=== PATIENT | male | born 2000 | race Caucasian/White ===

== ENCOUNTER 2019-02-07 16:23 | Emergency (ER) | payer OTHER ==
--- NOTE | 2019-02-07 16:42 | EDM.PDOC ---
<Smita Alcala - Last Filed: 02/07/19 17:56> ED HPI GENERAL MEDICAL PROBLEM - General Chief Complaint: General Stated Complaint: YELLOW EYES Time Seen by Provider: 02/07/19 16:41 Source of Information: Reports: Patient, Family History Limitations: Reports: No Limitations - History of Present Illness INITIAL COMMENTS - FREE TEXT/NARRATIVE: HISTORY AND PHYSICAL: History of present illness: Patient is a 18-year-old male presents to the ED with complaint of diarrhea x 3 weeks and yellow eyes. He states he has had loose, watery stools x 3 weeks. He states today he noticed that his eyes are yellow which concerned him and his mom and prompted him to come to ED. He states he did have itchy skin for a while but this has since resolved. Denies bloody, black, or bryan colored stools. Denies fevers, chills, nausea, vomiting, abdominal pain, urinary symptoms. Denies past medical or surgical history. Review of systems: As per history of present illness and below otherwise all systems reviewed and negative. Past medical history: As per history of present illness and as reviewed below otherwise noncontributory. Surgical history: As per history of present illness and as reviewed below otherwise noncontributory. Social history: No reported history of drug or alcohol abuse. Family history: As per history of present illness and as reviewed below otherwise noncontributory. Physical exam: General: Patient sitting comfortably in no acute distress and nontoxic appearing HEENT: Mild conjunctival yellowing. Atraumatic, normocephalic, pupils reactive, negative for conjunctival pallor, mucous membranes moist, throat clear, neck supple, nontender, trachea midline. No meningeal signs. Lungs: Clear to auscultation, breath sounds equal bilaterally, chest nontender. Heart: S1S2, regular, negative for clicks, rubs, or overt murmur. Abdomen: Soft, nondistended, nontender. Negative for masses or hepatosplenomegaly. Negative for costovertebral tenderness. No rigidity, rebound , guarding. Pelvis: Stable nontender. Genitourinary: Deferred. Rectal: Deferred. Extremities: Atraumatic, negative for cords or calf pain. Neurovascular unremarkable. Neuro: Awake, alert, oriented. Cranial nerves II through XII unremarkable. Cerebellum unremarkable. Motor and sensory unremarkable throughout. Exam nonfocal. Notes: Diagnostics: CBC, CMP, PT/INR, acute hepatitis panel, RUQ US Therapeutics: Prescriptions: Impression: Elevated LFTs, diarrhea Plan: Signed out to Lisa Regalado at 1800 Definitive disposition and diagnosis as appropriate pending reevaluation and review of above. - Related Data Allergies Allergy/AdvReac Type Severity Reaction Status Date / Time amoxicillin Allergy Rash Verified 02/07/19 16:33 Penicillins Allergy Rash Verified 02/07/19 16:33 Home Meds: Home Meds . [No Known Home Meds] 08/31/15 [History] Past Medical History - Past Surgical History HEENT Surgical History: Reports: Adenoidectomy Social & Family History - Family History Family Medical History: Noncontributory - Tobacco Use Smoking Status *Q: Never Smoker Second Hand Smoke Exposure: No - Caffeine Use Caffeine Use: Reports: Coffee - Recreational Drug Use Recreational Drug Use: No ED ROS GENERAL - Review of Systems Review Of Systems: ROS reveals no pertinent complaints other than HPI. ED EXAM, GENERAL - Physical Exam Exam: See Below (see dictation) Course - Vital Signs Last Recorded V/S: Last Vital Signs Temp 98 F 02/07/19 16:33 Pulse 70 02/07/19 21:01 Resp 18 02/07/19 21:01 BP 124/75 02/07/19 21:01 Pulse Ox 100 02/07/19 21:01 - Orders/Labs/Meds Orders: Active Orders 24 hr Category Date Time Status CDIFF TOX A+B [OP] Stat Lab 02/07/19 16:41 Ordered CULTURE STOOL + CAMPY+SHIGATOX [RM] Stat Lab 02/07/19 16:41 Ordered HEPATITIS PANEL (4) [REF] Stat Lab 02/07/19 18:14 Received OVA & PARASITES BY IMMUNOASSAY [MREF] Stat Lab 02/07/19 16:41 Ordered Isolation [COMM] Stat Oth 02/07/19 16:41 Ordered Labs: Laboratory Tests 02/07/19 02/07/19 02/07/19 Range/Units 17:10 17:10 17:11 WBC 4.69 (4.0-11.0) K/uL RBC 4.90 (4.50-5.90) M/uL Hgb 15.4 (13.0-17.0) g/dL Hct 45.0 (38.0-50.0) % MCV 91.8 (80.0-98.0) fL MCH 31.4 (27.0-32.0) pg MCHC 34.2 (31.0-37.0) g/dL RDW Std Deviation 43.3 (28.0-62.0) fl RDW Coeff of Darlyn 13 (11.0-15.0) % Plt Count 142 L (150-400) K/uL MPV 12.00 (7.40-12.00) fL Neut % (Auto) 56.4 (48.0-80.0) % Lymph % (Auto) 28.1 (16.0-40.0) % [place] % (Auto) 13.2 (0.0-15.0) % Eos % (Auto) 1.9 (0.0-7.0) % Baso % (Auto) 0.4 (0.0-1.5) % Neut # (Auto) 2.6 (1.4-5.7) K/uL Lymph # (Auto) 1.3 (0.6-2.4) K/uL [place] # (Auto) 0.6 (0.0-0.8) K/uL Eos # (Auto) 0.1 (0.0-0.7) K/uL Baso # (Auto) 0.0 (0.0-0.1) K/uL Nucleated RBC % 0.0 /100WBC Nucleated RBCs # 0 K/uL INR 1.02 Sodium 141 (136-148) mmol/L Potassium 4.6 (3.5-5.1) mmol/L Chloride 106 (98-107) mmol/L Carbon Dioxide 25.7 (21.0-32.0) mmol/L BUN 13 (7.0-18.0) mg/dL Creatinine 1.0 (0.8-1.3) mg/dL Est Cr Clr Drug Dosing 149.74 mL/min Estimated GFR (MDRD) > 60.0 ml/min Glucose 95 (74-106) mg/dL Calcium 9.4 (8.5-10.1) mg/dL Total Bilirubin 4.5 H (0.2-1.0) mg/dL AST 180 H (15-37) IU/L ALT 482 H (14-63) IU/L Alkaline Phosphatase 627 H (46-116) U/L Total Protein 7.9 (6.4-8.2) g/dL Albumin 3.5 (3.4-5.0) g/dL Globulin 4.4 H (2.6-4.0) g/dL Albumin/Globulin Ratio 0.8 L (0.9-1.6) Meds: Medications Discontinued Medications Generic Name Dose Route Start Last Admin Trade Name Freq PRN Reason Stop Dose Admin Sodium Chloride 1,000 mls @ 999 mls/hr 02/07/19 18:53 02/07/19 19:08 Normal Saline IV 02/07/19 19:53 999 mls/hr STAT ONE Administration Iopamidol 100 ml 02/07/19 19:36 02/07/19 19:36 Isovue Multipack-370 (76%) IVPUSH 02/07/19 19:37 100 ml ONETIME ONE Administration Departure - Departure Disposition: Home, Self-Care 01 Condition: Good Clinical Impression: Elevated LFTs, Elevated bilirubin Diarrhea Qualifiers: Diarrhea type: unspecified type Qualified Code(s): R19.7 - Diarrhea, unspecified - Discharge Information Instructions: Jaundice, Adult, [id number], Diarrhea, Adult, [id number] Referrals: PCP,Unknown [Primary Care Provider] - Forms: ED Department Discharge Additional Instructions: The following information is given to patients seen in the emergency department who are being discharged to home. This information is to outline your options for follow-up care. We provide all patients seen in our emergency department with a follow-up referral. The need for follow-up, as well as the timing and circumstances, are variable depending upon the specifics of your emergency department visit. If you don't have a primary care physician on staff, we will provide you with a referral. We always advise you to contact your personal physician following an emergency department visit to inform them of the circumstance of the visit and for follow-up with them and/or the need for any referrals to a consulting specialist. The emergency department will also refer you to a specialist when appropriate. This referral assures that you have the opportunity for follow-up care with a specialist. All of these measure are taken in an effort to provide you with optimal care, which includes your follow-up. Under all circumstances we always encourage you to contact your private physician who remains a resource for coordinating your care. When calling for follow-up care, please make the office aware that this follow-up is from your recent emergency room visit. If for any reason you are refused follow-up, please contact the [facility] Emergency Department at and asked to speak to the emergency department charge nurse. [facility] Specialty Care - General Surgery Professional Building [address] [place] [address], [address] [place] [address] 1. Please keep your appointment with Dr Hunter tomorrow. We will call you with an appointment time. 2. Outpatient stool study should be completed. Nursing staff will review how to obtain a sample to have this reviewed. There are some studies that were done that will not be back until later this week/possibly next week (Hepatitis Panel) . 3. Call Dr Sena's office to set up a follow up appointment tomorrow at 0830. You should be seen 1-2 days after your MRCP. 4. Do not consume any fatty or greasy foods as we discussed. 5. At any time you develop abdominal pain please return to the emergency room. <Lisa Regalado E - Last Filed: 02/07/19 21:33> ED HPI GENERAL MEDICAL PROBLEM - History of Present Illness INITIAL COMMENTS - FREE TEXT/NARRATIVE: Assumed care of this patient at 1800: Waiting on ultrasound report. 0: Ultrasound shows: Mild intrahepatic biliary ductal dilatation. Normal diameter of the common bile duct. Recommend CT with IV contrast to exclude obstruction at the level of the proximal common bile duct. We'll order a CT of the abdomen and pelvis for further findings. 2049:CT of abd/pelvis shows intrahepatic biliary dilatation and also dilatation of the gallbladder are present. This is a significant finding without a clear etiology. GI consultation is indicated for management of this finding. MRCP may be helpful to further evaluate for inflammation, mass, or other abnormality to explain this finding. Remainder of the exam is unremarkable.Dr Sena, general surgeon manager of organizational development, was consult did on this patient. Dr Sena was informed of this patient and wait reviewed labs and imaging results. With the patient not having any sort of abdominal pain. And vital signs are stable. This patient can follow up and do an MRCP as outpatient and see Dr. Sena in office one to 2 days post imaging. Encouraged the patient to not have any fatty foods until seen by him. All of this information was shared with the patient and mother at bedside they voice understanding. He continues to be pain- free. Vital signs remain stable. Plan: 1. Please keep your appointment with Dr Hunter tomorrow. 2. Outpatient stool study should be completed. Nursing staff will review how to obtain a sample to have this reviewed. There are some studies that were done that will not be back until later this week/possibly next week (Hepatitis Panel) . 3. Call Dr Sena's office to set up a follow up appointment tomorrow at 0830. You should be seen 1-2 days after your MRCP. 4. Do not consume any fatty or greasy foods as we discussed. 5. At any time you develop abdominal pain please return to the emergency room. Departure - Departure Time of Disposition: 21:31
[2019-02-07 17:36] LABS: BLOOD UREA NITROGEN,BUN 13 mg/dL (7.0-18.0); CARBON DIOXIDE,CO2 25.7 mmol/L (21.0-32.0); CHLORIDE,CL 106 mmol/L (98-107); GLUCOSE RANDOM 95 mg/dL (74-106); POTASSIUM,K 4.6 mmol/L (3.5-5.1); SODIUM,NA 141 mmol/L (136-148)
--- NOTE | 2019-02-07 18:51 | US ---
INDICATION: Elevated liver enzymes TECHNIQUE: Ultrasound abdomen limited. Sonographic images of the right upper quadrant were obtained using beaver-scale and color Doppler images. COMPARISON: None FINDINGS: Liver: Normal in size and echotexture. No masses. Mild intrahepatic biliary dilatation. Gallbladder: No stones or sludge. Normal wall thickness. No pericholecystic fluid. Sonographic Asencio`s sign is negative. Common bile duct: 5.5 mm. Note that the distal common bile duct was poorly seen due to overlying bowel gas. Pancreas: Normal. Right kidney: 12.4 cm. Normal echotexture and cortex. No masses, stones, or hydronephrosis. Vasculature: Proximal abdominal aorta and IVC are normal. IMPRESSION: Mild intrahepatic biliary ductal dilatation. Normal diameter of the common bile duct. Recommend CT with IV contrast to exclude obstruction at the level of the proximal common bile duct. Dictated by Gilma Clarke MD @ Feb 07 2019 6:46PM Signed by Dr. Gilma Clarke @ Feb 07 2019 6:49PM
[2019-02-07] MEDS ORDERED: Sodium Chloride 0.9% 1,000 ML IV ONE (18:53)
[2019-02-07] MEDS ORDERED: Iopamidol 755 MG/ML 500 ML Multipack Bottle IVPUSH ONE (19:36)
--- NOTE | 2019-02-07 20:50 | CT ---
INDICATION: Elevated bilirubin. Abnormal ultrasound. TECHNIQUE: CT abdomen and pelvis acquired with 100 cc Isovue 370 IV contrast. COMPARISON: Ultrasound abdomen February 07, 2019. FINDINGS: Lower chest: Unremarkable. Liver: Intrahepatic biliary dilatation is present. Liver is otherwise normal in caliber and density. No focal lesions. Gallbladder and bile ducts: Gallbladder is moderately dilated. No stones or inflammation evident. Extrahepatic bile ducts are normal in caliber. Pancreas: Unremarkable. No mass or inflammation. Spleen: Unremarkable. Normal in size. No masses. Adrenal glands: Unremarkable. No nodules. Kidneys: Unremarkable. No masses, stones, or hydronephrosis. GI tract: Unremarkable. Normal in caliber. No sign of mass or inflammation. Normal appendix. Vasculature: Unremarkable. Mesenteric arteries are patent. Lymph nodes: No lymphadenopathy. Omentum/Peritoneum/Abdominal Wall: Unremarkable. No sign of mass or infiltration. No free air or significant free fluid. Pelvis: Unremarkable. Bones: Unremarkable for age. IMPRESSION: Intrahepatic biliary dilatation and also dilatation of the gallbladder are present. This is a significant finding without a clear etiology. GI consultation is indicated for management of this finding. MRCP may be helpful to further evaluate for inflammation, mass, or other abnormality to explain this finding. Remainder of the exam is unremarkable. Please note that all CT scans at this facility use dose modulation, iterative reconstruction, and/or weight-based dosing when appropriate to reduce radiation dose to as low as reasonably achievable. Dictated by Yossi Mckeon MD @ Feb 07 2019 8:38PM Signed by Dr. Yossi Mckeon @ Feb 07 2019 8:49PM
[2019-02-07 22:02] VITALS: BP 128/73; PULSE 68
== END 2019-02-07 22:03 | disposition home or self-care (01) ==
LOC: MW.ED 16:23
DX: R17 Unspecified jaundice (principal); R19.7 Diarrhea, unspecified; Z88.1 Allergy status to other antibiotic agents; Z88.0 Allergy status to penicillin
CPT/HCPCS: 36415; 74177; 76705; 80053; 80074; 85025; 85610; 96360; 99284; J7040; Q9967; 99283

== ENCOUNTER 2019-03-04 17:05 | Emergency (ER) | payer OTHER ==
[2019-03-04] MEDS ORDERED: Sodium Chloride 0.9% 1,000 ML IV ONE (17:24)
[2019-03-04] MEDS ORDERED: Sodium Chloride 0.9% 10 ML Syringe FLUSH PRN (17:24)
[2019-03-04] MEDS ORDERED: Sodium Chloride 0.9% 2.5 ML Syringe FLUSH PRN (17:24)
--- NOTE | 2019-03-04 17:31 | EDM.PDOC ---
ED HPI GENERAL MEDICAL PROBLEM - General Chief Complaint: General Stated Complaint: BLOOD IN STOOL Time Seen by Provider: 03/04/19 17:13 Source of Information: Reports: Patient History Limitations: Reports: No Limitations - History of Present Illness INITIAL COMMENTS - FREE TEXT/NARRATIVE: History of present illness: []Patient was diagnosed with Campylobacter a month ago and is being worked up for sclerosing cholangitis. He has an appointment one week from today at [facility] for an ERCP. Patient has continued to have diarrhea after he eats anything and mild abdominal pain with bowel movements. Today patient had a bowel movement with blood on it. Patient has not had any fevers chills vomiting or diarrhea. Mom wants to know if she should drive him to [place] now. Review of systems: As per history of present illness and below otherwise all systems reviewed and negative. Past medical history: As per history of present illness and as reviewed below otherwise noncontributory. Surgical history: As per history of present illness and as reviewed below otherwise noncontributory. Social history: No reported history of drug or alcohol abuse. Family history: As per history of present illness and as reviewed below otherwise noncontributory. Physical exam: General: Well developed, well nourished in NAD HEENT: Atraumatic, normocephalic, pupils reactive, positive for scleral icterus , mucous membranes moist, lips are dry throat clear, neck supple, nontender, trachea midline. Lungs: Clear to auscultation, breath sounds equal bilaterally, chest nontender. Heart: S1S2, regular, negative for clicks, rubs, or JVD. Abdomen: NABS, Soft, nondistended, nontender. Negative for masses or hepatosplenomegaly. Negative for costovertebral tenderness. Pelvis: Stable nontender. Genitourinary: Deferred. Rectal: Deferred. Extremities: Atraumatic, negative for cords or calf pain. Neurovascular unremarkable. Neuro: Awake, alert, oriented. Cranial nerves II through XII unremarkable. Cerebellum unremarkable. Motor and sensory unremarkable throughout. Exam nonfocal. Skin: Jaundiced, warm and dry Diagnostics: CBC, chemistry-LFTs are abnormal but stable Therapeutics: IV hydration ED Course: Stable Impression: Elevated LFTs, chronic diarrhea, blood on stool Prescriptions: None Plan: Take meds as directed, follow up with your primary care physician, return to ER if symptoms worsen or change. Definitive disposition and diagnosis as appropriate pending reevaluation and review of above. - Related Data Allergies Allergy/AdvReac Type Severity Reaction Status Date / Time amoxicillin Allergy Rash Verified 03/04/19 17:21 Penicillins Allergy Rash Verified 03/04/19 17:21 Home Meds: Home Meds . [No Known Home Meds] 08/31/15 [History] Past Medical History - Past Surgical History HEENT Surgical History: Reports: Adenoidectomy Social & Family History - Family History Family Medical History: Noncontributory - Tobacco Use Smoking Status *Q: Never Smoker Second Hand Smoke Exposure: No - Caffeine Use Caffeine Use: Reports: Energy Drinks - Recreational Drug Use Recreational Drug Use: No ED ROS GENERAL - Review of Systems Review Of Systems: See Below ED EXAM, GENERAL - Physical Exam Exam: See Below Course - Vital Signs Last Recorded V/S: Last Vital Signs Temp 97.6 F 03/04/19 17:22 Pulse 71 03/04/19 17:22 Resp 18 03/04/19 17:22 BP 135/81 03/04/19 17:22 Pulse Ox 99 03/04/19 17:22 - Orders/Labs/Meds Orders: Active Orders 24 hr Category Date Time Status CULTURE STOOL + CAMPY+SHIGATOX [RM] Stat Lab 03/04/19 17:24 Ordered TYPE AND SCREEN [BBK] Stat Lab 03/04/19 18:34 Received Sodium Chloride 0.9% [Saline Flush] Med 03/04/19 17:24 Active 10 ml FLUSH ASDIRECTED PRN Sodium Chloride 0.9% [Saline Flush] Med 03/04/19 17:24 Active 2.5 ml FLUSH ASDIRECTED PRN Saline Lock Insert [OM.PC] Stat Oth 03/04/19 17:23 Ordered Medication Orders Sodium Chloride (Saline Flush) 10 ml FLUSH ASDIRECTED PRN PRN Reason: Keep Vein Open Last Admin: 03/04/19 17:57 Dose: 10 ml Sodium Chloride (Saline Flush) 2.5 ml FLUSH ASDIRECTED PRN PRN Reason: Keep Vein Open Last Admin: 03/04/19 17:57 Dose: 2.5 ml Labs: Laboratory Tests 03/04/19 03/04/19 Range/Units 17:44 17:44 WBC 4.12 (4.0-11.0) K/uL RBC 4.47 L (4.50-5.90) M/uL Hgb 14.0 (13.0-17.0) g/dL Hct 41.5 (38.0-50.0) % MCV 92.8 (80.0-98.0) fL MCH 31.3 (27.0-32.0) pg MCHC 33.7 (31.0-37.0) g/dL RDW Std Deviation 46.3 (28.0-62.0) fl RDW Coeff of Darlyn 14 (11.0-15.0) % Plt Count 150 (150-400) K/uL MPV 13.70 H (7.40-12.00) fL Neut % (Auto) 60.0 (48.0-80.0) % Lymph % (Auto) 27.9 (16.0-40.0) % [place] % (Auto) 8.5 (0.0-15.0) % Eos % (Auto) 3.4 (0.0-7.0) % Baso % (Auto) 0.2 (0.0-1.5) % Neut # (Auto) 2.5 (1.4-5.7) K/uL Lymph # (Auto) 1.2 (0.6-2.4) K/uL [place] # (Auto) 0.4 (0.0-0.8) K/uL Eos # (Auto) 0.1 (0.0-0.7) K/uL Baso # (Auto) 0.0 (0.0-0.1) K/uL Nucleated RBC % 0.0 /100WBC Nucleated RBCs # 0 K/uL Sodium 140 (136-148) mmol/L Potassium 4.3 (3.5-5.1) mmol/L Chloride 106 (98-107) mmol/L Carbon Dioxide 24.9 (21.0-32.0) mmol/L BUN 12 (7.0-18.0) mg/dL Creatinine 1.0 (0.8-1.3) mg/dL Est Cr Clr Drug Dosing 122.68 mL/min Estimated GFR (MDRD) > 60.0 ml/min Glucose 109 H (74-106) mg/dL Calcium 9.0 (8.5-10.1) mg/dL Total Bilirubin 7.4 H (0.2-1.0) mg/dL AST 215 H (15-37) IU/L ALT 510 H (14-63) IU/L Alkaline Phosphatase 840 H (46-116) U/L Total Protein 7.8 (6.4-8.2) g/dL Albumin 3.2 L (3.4-5.0) g/dL Globulin 4.6 H (2.6-4.0) g/dL Albumin/Globulin Ratio 0.7 L (0.9-1.6) Lipase 52 L (73-393) U/L Meds: Medications Generic Name Dose Route Start Last Admin Trade Name Freq PRN Reason Stop Dose Admin Sodium Chloride 10 ml 03/04/19 17:24 03/04/19 17:57 Saline Flush FLUSH 10 ml ASDIRECTED PRN Administration Keep Vein Open Sodium Chloride 2.5 ml 03/04/19 17:24 03/04/19 17:57 Saline Flush FLUSH 2.5 ml ASDIRECTED PRN Administration Keep Vein Open Discontinued Medications Generic Name Dose Route Start Last Admin Trade Name Freq PRN Reason Stop Dose Admin Sodium Chloride 1,000 mls @ 999 mls/hr 03/04/19 17:24 03/04/19 17:55 Normal Saline IV 03/04/19 18:24 999 mls/hr .Bolus ONE Administration Departure - Departure Time of Disposition: 18:47 Disposition: Home, Self-Care 01 Condition: Good Clinical Impression: Chronic diarrhea, Elevated LFTs - Discharge Information *PRESCRIPTION DRUG MONITORING PROGRAM REVIEWED*: No *COPY OF PRESCRIPTION DRUG MONITORING REPORT IN PATIENT RAJIV: No Referrals: PCP,Unknown [Primary Care Provider] - Forms: ED Department Discharge Additional Instructions: The following information is given to patients seen in the emergency department who are being discharged to home. This information is to outline your options for follow-up care. We provide all patients seen in our emergency department with a follow-up referral. The need for follow-up, as well as the timing and circumstances, are variable depending upon the specifics of your emergency department visit. If you don't have a primary care physician on staff, we will provide you with a referral. We always advise you to contact your personal physician following an emergency department visit to inform them of the circumstance of the visit and for follow-up with them and/or the need for any referrals to a consulting specialist. The emergency department will also refer you to a specialist when appropriate. This referral assures that you have the opportunity for follow-up care with a specialist. All of these measure are taken in an effort to provide you with optimal care, which includes your follow-up. Under all circumstances we always encourage you to contact your private physician who remains a resource for coordinating your care. When calling for follow-up care, please make the office aware that this follow-up is from your recent emergency room visit. If for any reason you are refused follow-up, please contact the [facility] Emergency Department at and asked to speak to the emergency department charge nurse. follow up with your primary care physician, return to ER if symptoms worsen or change. [facility] [address] [place] [id number] - My Orders Last 24 Hours: My Active Orders 03/04/19 17:23 Saline Lock Insert [OM.PC] Stat 03/04/19 17:24 CULTURE STOOL + CAMPY+SHIGATOX [RM] Stat Sodium Chloride 0.9% [Saline Flush] 10 ml FLUSH ASDIRECTED PRN Sodium Chloride 0.9% [Saline Flush] 2.5 ml FLUSH ASDIRECTED PRN 03/04/19 18:34 TYPE AND SCREEN [BBK] Stat - Assessment/Plan Last 24 Hours: My Active Orders 03/04/19 17:23 Saline Lock Insert [OM.PC] Stat 03/04/19 17:24 CULTURE STOOL + CAMPY+SHIGATOX [RM] Stat Sodium Chloride 0.9% [Saline Flush] 10 ml FLUSH ASDIRECTED PRN Sodium Chloride 0.9% [Saline Flush] 2.5 ml FLUSH ASDIRECTED PRN 03/04/19 18:34 TYPE AND SCREEN [BBK] Stat
[2019-03-04 18:29] LABS: BLOOD UREA NITROGEN,BUN 12 mg/dL (7.0-18.0); CARBON DIOXIDE,CO2 24.9 mmol/L (21.0-32.0); CHLORIDE,CL 106 mmol/L (98-107); GLUCOSE RANDOM 109 mg/dL (74-106); LIPASE 52 U/L (73-393); POTASSIUM,K 4.3 mmol/L (3.5-5.1); SODIUM,NA 140 mmol/L (136-148)
[2019-03-04 19:05] VITALS: BP 125/72; PULSE 65
== END 2019-03-04 19:06 | disposition home or self-care (01) ==
LOC: MW.ED 17:05
DX: K52.9 Noninfective gastroenteritis and colitis, unspecified (principal); K92.1 Melena; R94.5 Abnormal results of liver function studies; Z88.0 Allergy status to penicillin
CPT/HCPCS: 36415; 80053; 83690; 85025; 86850; 86900; 86901; 96360; 99284; J7040; 99283